=== PATIENT | female | born 1995 | race Caucasian/White ===

== ENCOUNTER 2017-01-05 22:26 | Inpatient (IN) | payer OTHER ==
[~2017-01-05] VITALS: Ht 157.5 cm; Wt 45.4 kg
--- NOTE | ~2017-01-05 | CO ---
Unit #: [id number] #: [id number] Patient: JENNIE ZUÑIGA [id number] [address] [address] [id number] I MR#: [id number] NAME: JENNIE ZUÑIGA ROOM: 228 Age: 21 Sex: F Admission Date: 01/05/2017 : 1995 Attending Physician: Tegan Rodriguez M.D. Primary Care Physician: No Primary Care Physician Consultation Date: 01/06/2017 CONSULTATION REPORT REASON FOR CONSULTATION Colitis. HISTORY OF PRESENT ILLNESS This 21-year-old female was admitted last night with complaints of lower abdominal pain and diarrhea. It has been going on for about 3 weeks. She has made 2 different ER visits. On the first visit 2 weeks ago, she was given some antibiotics, which made her feel better; however, after the antibiotics were done, she started with symptoms again. She did have blood in the stool for the first few days. After that, it has been mostly frequent stools, which is watery. She complains of lower abdominal pain, feels chills but no fever. No (1) symptoms, including nausea, vomiting, hematemesis. Denies any antibiotic use before this episode. Denies any sick contacts. PAST MEDICAL HISTORY Unremarkable. SOCIAL HISTORY Nonsmoker. No alcohol. No drug use. REVIEW OF SYSTEMS Complete 10-point review of systems was done, which is unremarkable other than as mentioned above. ALLERGIES Augmentin, metronidazole and amoxicillin. PHYSICAL EXAMINATION VITAL SIGNS: Vital signs are stable. Afebrile. GENERAL: No acute distress. HEENT: Pupils are equal and reactive. Sclera anicteric. Oral mucosa moist. NECK: No JVD. No lymphadenopathy. CHEST: Clear to auscultation bilaterally. CARDIOVASCULAR SYSTEM: Regular rate and rhythm. No murmurs. ABDOMEN: Soft, nontender, nondistended. EXTREMITIES: Without any clubbing, cyanosis, or edema. NEUROLOGIC: Intact. SKIN: Warm and dry. DIAGNOSTIC STUDIES LABS: Results are pending at this time. Unit #: [id number] #: [id number] Patient: JENNIE ZUÑIGA ASSESSMENT AND PLAN I will get the reports on CT scan and labs from [facility]. In the meantime, we will keep her on broad-spectrum antibiotics and IV fluids and symptomatic treatment. Will go ahead and get stool for C. difficile, as well as culture and sensitivity. If stool studies are negative, and after reviewing the CT findings, consider colonoscopy. Thank you, Dr. Rodriguez, for this interesting consult. Will follow along. Dictated by... Moody Nowak/kareem TD: 01/07/2017 08:21 JOB #: [id number] CONSULTATION REPORT Page 1 of 1 X Isaac Sahni MD CONSULTATION REPORT
--- NOTE | ~2017-01-05 | DS ---
Unit #: [id number] #: [id number] Patient: JENNIE ZUÑIGA [id number] [address] [place], [place] [address] [id number] I MR#: [id number] NAME: JENNIE ZUÑIGA ROOM: 228 Age: 21 Sex: F Admission Date: 01/05/2017 : 1995 Discharge Date: 01/06/2017 Attending Physician: Tegan Rodriguez M.D. Primary Care Physician: No Primary Care Physician DISCHARGE SUMMARY REASON FOR ADMISSION Diarrhea. DISCHARGE DIAGNOSES 1. Diarrhea likely infectious but rule out ulcerative colitis. 2. Chronic anemia. 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 PROCEDURES Colonoscopy. HOSPITAL COURSE This is a very pleasant 21-year-old female with a past medical history significant only for allergic rhinitis and anemia, who presented to the emergency room with a second bout of explosive watery diarrhea over the last three weeks. Patient stated that she had similar symptoms a couple of weeks ago and she was treated with Cipro and Flagyl. However, she couldn't tolerate Flagyl with nausea and vomiting, so she just finished a course of nausea and vomiting, so she just finished a course of Cipro and at the end of her course, she was feeling better; however, three days after she stopped her antibiotics, her symptoms came back again. She denied any family history of autoimmune disease, Crohn disease or ulcerative colitis. Her CT abdomen was consistent with thickened (2) concerning for possible ulcerative colitis. Patient was hydrated well and started on Levaquin per Dr. Sahni. She is undergoing colonoscopy at the time of dictation and resolved to be followed in Dr. Sahni's notes. DISCHARGE MEDICATIONS 1. Kurvelo. 2. Singulair 10 mg p.o. daily. 3. Antibiotics to be determined at the time of discharge by Dr. Sahni. Dictated by... Stephen Kirby M.D. EA/mariana Unit #: [id number] #: [id number] Patient: JENNIE ZUÑIGA TD: 01/07/2017 11:46 JOB #: [id number] DISCHARGE SUMMARY Page 1 of 1 X STEPHEN CORDERO MD DISCHARGE SUMMARY
--- NOTE | ~2017-01-05 | HP ---
Unit #: [id number] #: [id number] Patient: JENNIE ZUÑIGA [id number] [address] [address] [id number] I MR#: [id number] NAME: JENNIE ZUÑIGA ROOM: 228 Age: 21 Sex: F Admission Date: 01/05/2017 : 1995 Attending Physician: Tegan Rodriguez M.D. Primary Care Physician: No Primary Care Physician HISTORY AND PHYSICAL REASON FOR ADMISSION Diarrhea. HISTORY OF PRESENT ILLNESS This is a very pleasant, 21-year-old, female with past medical history significant for allergy who presented to the emergency room with abdominal discomfort and recurrent diarrhea. Patient stated that two weeks ago she had similar symptoms and she presented to her primary care doctor, who started her on Cipro and Flagyl; however, patient could not tolerate Flagyl due to nausea, vomiting, and intolerance. She stated that her diarrhea subsided upon finishing her Cipro course; however, two days after, she started having diarrhea again associated with some abdominal discomfort and nausea, but no vomiting. Patient denied any similar episode many years ago. Patient describes her diarrhea as watery and explosive. She stated that she had multiple episodes over the last 24 hours; however, it is better today. PAST MEDICAL HISTORY Allergic rhinitis. PAST SURGICAL HISTORY 1. Tonsillectomy. 2. Adenoid (1) . ALLERGIES No known drug allergies. SOCIAL HISTORY Patient denied any history of smoking, alcohol, or drug abuse. She works part-time and she goes to college. REVIEW OF SYSTEMS Twelve-point review of systems were obtained and were negative, except for diarrhea and some abdominal discomfort with nausea. PHYSICAL EXAMINATION GENERAL: The patient is not in acute distress. VITAL SIGNS: Blood pressure 115/59, respiratory rate 16, and O2 saturation 100% on room air. HEENT: Atraumatic and normocephalic. EOMI. NECK: Supple. No JVD. No lymphadenopathy. CHEST: Clear to auscultation bilaterally. Unit #: [id number] #: [id number] Patient: JENNIE ZUÑIGA HEART: S1 and S2. No murmurs, gallops, or rubs. ABDOMEN: Soft and nontender. Bowel sounds positive. No hepatosplenomegaly. EXTREMITIES: No edema or cyanosis. SKIN: No rashes. 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 No focal motor/sensory deficit. DIAGNOSTIC STUDIES LABORATORY: Creatinine 0.6, calcium 8.1, and bicarb 19. White blood count 12.7. IMAGING: CT abdomen and pelvis were reviewed from the outlying ER, which is consistent with colitis and colon thickening. ASSESSMENT 1. Infectious colitis. 2. Chronic anemia. 3. Allergic rhinitis. PLAN 1. Will continue patient on Levaquin, but may need to add Flagyl if she can tolerate. Maybe we need to check if IV form is available. 2. Rule out C. diff. colitis. 3. Stool for culture. 4. GI eval for possible colonoscopy. 5. Encourage out of bed to chair and ambulation. Dictated by Moody Fairbanks TD: 01/07/2017 06:12 JOB #: [id number] HISTORY AND PHYSICAL Page 1 of 1 X STEPHEN CORDERO MD X HISTORY AND PHYSICAL
--- NOTE | ~2017-01-05 | A ---
[facility] Nutrition Therapy DATE: 01/06/17 Patient: JENINE ZUÑIGA Physician: HUNTER Address: [address] [place] [address] COART Room/Bed: [address] [place] [address], Zip: [place] [address] Admit Date: 01/05/17 Date of : [birth year] Height: 5 2 Weight: 100 45.4 NUTRITIONAL ASSESSMENT: REASON: Low BMI Admitting dx: 21 y/o female admitted with abdominal pain, found to have colitis PMH: No H&P currently available Anthropometrics: Ht: 62", Wt: 45.4 kg (100 lbs), BMI: 18.3 (underweight) Labs: None available Meds: Levaquin, pain meds, zofran prn I/O & Bowel function: BM 01/05 Skin Integrity: No issues, no edema Estimated Nutrition Needs: Increased due to underweight status Assessment: Chart reviewed, events noted. See admitting dx above. Patient confirms above weight/height, stating this is her UBW and denies any recent weight loss. Denies N/V at this time or chewing/swallowing difficulties. Tolerating clear liquids, amenable to trying Ensure clear- will order. Pt appears nourished, scored 0 points on the malnutrition risk screen. See RD recs below, will follow. Dx: Underweight r/t unknown etiology AEB BMI 18.3. Intervention: Ensure clear BID Monitoring, Evaluation and Goals: 1. Tolerance of diet advancement. 2. Gradual weight gain towards a healthy BMI range. Monitor: per yadira, criteria to determine if above goals met Recommendations: 1. RD ordering apple Ensure clear BID to provide extra kcals/protein. Advance diet to regular as tolerated. Patient may benefit from a low fiber diet during flare-up. Suggest small, frequent meals while restricting high fat/greasy foods and dairy if not tolerated. [facility] Nutrition Therapy DATE: 01/06/17 Patient: JENNIE ZUÑIGA Physician: HUNTER Address: [address] [place] [address] COART Room/Bed: [address] [place] [address], Zip: [place] [address] Admit Date: 01/05/17 Date of : [birth year] Height: 5 2 Weight: 100 45.4 2. Weigh q 3 days for monitoring purposes, as the patient is clinically underweight. RD will follow Mild nutrition risk Respectfully, Nellie Olsen, MARLENY, LD [employer] [facility] cc: client file
[~2017-01-05 22:26] MED LIST: ALLERGY SHOTS; CETIRIZINE HCL10 MG; SINGULAIR PO; TRIAMCINOLONE AC1 GM
[2017-01-06] MEDS ORDERED: BIRTH CONTROL PILL PO (00:08)
[2017-01-06] MEDS ORDERED: KURVELO1 EACH PO (00:34)
[2017-01-06 10:32] LABS: HEMATOCRIT 34.8 % (35.0-45.0); HEMOGLOBIN 11.7 gm/dL (12.0-16.0); MEAN CELL VOLUME 87.3 FL (83-96); MEAN CORPUSCULAR HEMOGLOBIN 29.2 PG (28-34); MEAN CORPUSCULAR HGB CONC 33.4 g/dL (30-36); MEAN PLATELET VOLUME 8.9 FL (6.5-11.5); RED BLOOD COUNT 3.99 X10e (3.90-5.30); RED CELL DISTRIBUTION WIDTH 13.2 % (11.0-15.5); WHITE BLOOD COUNT 12.7 X10e3 (4.0-10.5)
[2017-01-06 11:04] LABS: ALBUMIN SERUM 3.3 g/dL (3.5-5.0); BILIRUBIN,TOTAL 0.9 mg/dL (0.2-2.0); BUN/CREATININE RATIO 8.33; CALCIUM SERUM 8.1 mg/dL (8.4-10.2); CREATININE SERUM 0.6 mg/dL (0.6-1.4); GLOM FILT RATE Estimated 132.1 mL/min (>60); POTASSIUM 3.5 mmol/L (3.5-5.1); PROTEIN TOTAL SERUM 6.1 g/dL (6.0-8.3)
[2017-01-07] MEDS ORDERED: FLAGYL PO (13:23)
== END 2017-01-07 14:13 | disposition home or self-care (01) | DRG 392 ==
LOC: C2A 22:26 → UNDOADMIN 22:26 → C2A 01-06 00:15
PROVIDERS: Internal Medicine
DX: A09 Infectious gastroenteritis and colitis, unspecified (principal); E46 Unspecified protein-calorie malnutrition; Z68.1 Body mass index [BMI] 19.9 or less, adult; J30.9 Allergic rhinitis, unspecified; D64.89 Other specified anemias
CPT/HCPCS: 80053; 84703; 85027; 86140; 87045; 87427; 87493; 87899; J1956; J2405

== ENCOUNTER 2017-01-21 10:00 | Inpatient (IN) | payer OTHER ==
[~2017-01-21] VITALS: Ht 157.5 cm; Wt 47.6 kg
--- NOTE | ~2017-01-21 | CR2 ---
[facility] A Service of [facility] RADIOLOGY TEXT RESULTS PATIENT: JENNIE ZUÑIGA LOCATION: [address] : [birth year] UNIT #: [id number] AGE: [address]: STEPHEN CORDERO MD SEX: F ORDER DR: [id number] [id number] [place], [place] [address] [id number] MR#: [id number] Acc #: [id number] NAME: JENNIE ZUÑIGA : 1995 SEX: F STUDY DATE/TIME: UNIT: [place] ROOM: STUDY DESCRIPTION: CR Abdomen Acute Series Attending Physician: Maya Yu M.D. Ordering Physician: Maya Yu M.D. Primary Care Physician: Generic Doctor MEDICAL IMAGING REPORT This report is preliminary unless electronic signature is present EXAM Abdomen series, 01/21/2017, 1036 hours. CLINICAL HISTORY 21-year-old with history of colitis, complaining of abdominal pain today. COMPARISON CT abdomen and pelvis, 01/05/2017, chest x-ray 06/18/2014. FINDINGS Portable upright chest demonstrates normal cardiac, mediastinal and hilar contours. The lungs are well expanded and clear. There is no effusion. No pneumothorax or free air in the abdomen. The supine and upright views of the abdomen demonstrate no evidence of bowel distension or bowel wall thickening. No free air or suspicious calcifications. IMPRESSION 1. Normal chest. 2. No evidence of small bowel or colonic distension. No wall thickening is detected on plain film. There is no free air or suspicious calcification. Dictated by... Karena Fernandes M.D. THIS IS AN ELECTRONICALLY VERIFIED REPORT Karena Fernandes M.D. at 01/22/2017 3:27 PM CELESTINE/maurisio TD: 01/21/2017 15:32 [facility] A Service of [facility] RADIOLOGY TEXT RESULTS PATIENT: JENNIE ZUÑIGA LOCATION: [address] : [birth year] UNIT #: [id number] AGE: [address]: STEPHEN CORDERO MD SEX: F ORDER DR: JOB #: [id number] MEDICAL IMAGING REPORT Page 1 of 1 COPY
--- NOTE | ~2017-01-21 | HP ---
Unit #: [id number] #: [id number] Patient: JENNIE ZUÑIGA [id number] [address] [address] [id number] I MR#: [id number] NAME: JENNIE ZUÑIGA ROOM: 216 Age: 21 Sex: F Admission Date: 01/21/2017 : 1995 Attending Physician: Lukasz Linder Primary Care Physician: Generic Doctor Not In System HISTORY AND PHYSICAL CHIEF COMPLAINT Diarrhea. HISTORY OF PRESENT ILLNESS [id number] female, with past medical history of allergies, presented with complaint of abdominal pain and has recent episode of C. difficile colitis and was seen by gastroenterology and I am seeing her at the bedside. The patient denies any headache, blurry vision, no chest pain. PAST MEDICAL HISTORY Rhinitis. SURGICAL HISTORY Tonsillectomy, adenoid surgery. ALLERGIES No known drug allergies. SOCIAL HISTORY No smoking, alcohol, or drug abuse, and she goes to college. PHYSICAL EXAMINATION VITAL SIGNS: Temperature 98, pulse 87, respiration 12, and blood pressure 130/70. NEUROLOGIC: Awake, alert, and oriented. No neurologic deficit. HEENT: PERRLA. NECK: Supple. No jugular venous distention. CHEST: Bilateral air entry. Bilateral mild rhonchi. GI: Nontender. Soft. Bowel sounds are positive. EXTREMITIES: No edema. SKIN: No rash. LYMPHATICS: No lymphadenopathy. ASSESSMENT/PLAN Acute colitis, C. difficile. Plan is to continue the patient on vancomycin and Flagyl, and GI consultation. Please see orders for detailed plans. Dictated by Unit #: [id number] #: [id number] Patient: JENNIE ZUÑIGA Moody Wallace TD: 01/23/2017 12:05 JOB #: [id number] HISTORY AND PHYSICAL Page 1 of 1 X Tegan Rodriguez MD HISTORY AND PHYSICAL
[~2017-01-21 10:00] MED LIST changes: +BIRTH CONTROL PILL PO; +FLAGYL PO; +KURVELO1 EACH PO
[2017-01-21] MEDS ORDERED: VANCOCIN HCL250 MG PO (11:01)
[2017-01-21] MEDS ORDERED: FLAGYL PO (11:01)
[2017-01-21] MEDS ORDERED: PATIENT'S PHARMACY (11:01)
[2017-01-21] MEDS ORDERED: [UNRECOGNIZED DRUG - OTHER] PO (11:02)
[2017-01-21 11:53] LABS: URINE SOURCE CLEAN CATCH
[2017-01-21 11:59] LABS: BASOPHIL% 0.3 % (0-2.5); EOSINOPHIL% 0.3 % (0.0-7.0); HEMATOCRIT 39.6 % (35.0-45.0); LYMPHOCYTE# 2.1 X10e3 (1.0-3.5); LYMPHOCYTE% 14.3 % (17.0-45.0); MEAN CELL VOLUME 87.2 FL (83-96); MEAN CORPUSCULAR HEMOGLOBIN 28.7 PG (28-34); MEAN CORPUSCULAR HGB CONC 32.9 g/dL (30-36); MEAN PLATELET VOLUME 9.7 FL (6.5-11.5); MONOCYTE# 0.7 X10e3 (0-1.0); MONOCYTE% 4.9 % (3.0-12.0); NEUTROPHIL# 11.8 X10e3 (1.5-7.1); NEUTROPHIL% 80.2 % (40-75); PLATELET COUNT 209 X10e3 (140-420); RED BLOOD COUNT 4.55 X10e (3.90-5.30); RED CELL DISTRIBUTION WIDTH 13.1 % (11.0-15.5); WHITE BLOOD COUNT 14.7 X10e3 (4.0-10.5)
[2017-01-21 12:01] LABS: URINE APPEARANCE CLOUDY; URINE BLOOD TRACE (NEG); URINE COLOR DK YELLOW; URINE GLUCOSE NEG (NEG); URINE KETONE 3+ (NEG); URINE LEUKOCYTE ESTERASE TRACE (NEG); URINE NITRATE NEG (NEG); URINE PH 5.5 (5-8); URINE PROTEIN 2+ (NEG); URINE SPECIFIC GRAVITY 1.031 (1.003-1.035)
[2017-01-21 12:04] LABS: DIFF IND NO
[2017-01-21 12:05] LABS: CULTURE INDICATED? YES; URINE SQUAMOUS EPITHELIAL CELL MANY /[HPF]
[2017-01-21 12:21] LABS: URINE BILIRUBIN NEG (NEG)
[2017-01-21 12:22] LABS: U HYALINE CASTS AUWI 0-2 /[LPF]; URINE MUCUS PRESENT
[2017-01-21 12:24] LABS: URINE BACTERIA AUWI 1+ (NEGATIVE)
[2017-01-21 12:34] LABS: ALBUMIN SERUM 3.9 g/dL (3.5-5.0); BILIRUBIN, DIRECT 0.1 mg/dL (0.0-0.2); BILIRUBIN,INDIRECT 0.7 mg/dL (0.0-0.9); BILIRUBIN,TOTAL 0.8 mg/dL (0.2-2.0); BUN/CREATININE RATIO 11.42; CALCIUM SERUM 9.3 mg/dL (8.4-10.2); CREATININE SERUM 0.7 mg/dL (0.6-1.4); GLOM FILT RATE Estimated 125.6 mL/min (>60); POTASSIUM 3.7 mmol/L (3.5-5.1)
[2017-01-22 05:37] LABS: HEMATOCRIT 32.7 % (35.0-45.0); MEAN CELL VOLUME 87.1 FL (83-96); MEAN CORPUSCULAR HEMOGLOBIN 29.3 PG (28-34); MEAN CORPUSCULAR HGB CONC 33.6 g/dL (30-36); MEAN PLATELET VOLUME 9.4 FL (6.5-11.5); RED BLOOD COUNT 3.75 X10e (3.90-5.30); RED CELL DISTRIBUTION WIDTH 13.2 % (11.0-15.5); WHITE BLOOD COUNT 8.1 X10e3 (4.0-10.5)
[2017-01-22 06:20] LABS: ALBUMIN SERUM 2.9 g/dL (3.5-5.0); ALKALINE PHOSPHATASE 32 U/L (32-92); ALT (SGPT) 16 U/L (8-29); AST (SGOT) 18 U/L (14-37); BILIRUBIN,TOTAL 0.4 mg/dL (0.2-2.0); BLOOD UREA NITROGEN <5 mg/dL (9-23); CALCIUM SERUM 8.1 mg/dL (8.4-10.2); CARBON DIOXIDE 20 mmol/L (22-31); CHLORIDE 110 mmol/L (100-111); CREATININE SERUM 0.5 mg/dL (0.6-1.4); GLOM FILT RATE Estimated 140.3 mL/min (>60); GLUCOSE FASTING 97 mg/dL (70-110); POTASSIUM 3.7 mmol/L (3.5-5.1); PROTEIN TOTAL SERUM 5.6 g/dL (6.0-8.3); SODIUM 136 mmol/L (135-145)
[2017-01-23 06:15] LABS: HEMATOCRIT 37.8 % (35.0-45.0); HEMOGLOBIN 12.2 gm/dL (12.0-16.0); MEAN CELL VOLUME 88.3 FL (83-96); MEAN CORPUSCULAR HEMOGLOBIN 28.5 PG (28-34); MEAN CORPUSCULAR HGB CONC 32.2 g/dL (30-36); MEAN PLATELET VOLUME 9.4 FL (6.5-11.5); RED BLOOD COUNT 4.29 X10e (3.90-5.30); RED CELL DISTRIBUTION WIDTH 13.3 % (11.0-15.5); WHITE BLOOD COUNT 7.8 X10e3 (4.0-10.5)
[2017-01-23 06:40] LABS: ALBUMIN SERUM 3.4 g/dL (3.5-5.0); ALKALINE PHOSPHATASE 39 U/L (32-92); ALT (SGPT) 16 U/L (8-29); AST (SGOT) 22 U/L (14-37); BILIRUBIN,TOTAL 0.3 mg/dL (0.2-2.0); BLOOD UREA NITROGEN <5 mg/dL (9-23); CALCIUM SERUM 8.6 mg/dL (8.4-10.2); CARBON DIOXIDE 21 mmol/L (22-31); CHLORIDE 109 mmol/L (100-111); CREATININE SERUM 0.5 mg/dL (0.6-1.4); GLOM FILT RATE Estimated 140.3 mL/min (>60); GLUCOSE FASTING 86 mg/dL (70-110); POTASSIUM 3.5 mmol/L (3.5-5.1); PROTEIN TOTAL SERUM 6.3 g/dL (6.0-8.3); SODIUM 138 mmol/L (135-145)
== END 2017-01-23 12:18 | disposition home or self-care (01) | DRG 373 ==
LOC: CED 10:00 → C2A 13:40 → CED 16:18 → C2A 16:18
PROVIDERS: Emergency Medicine; Internal Medicine
DX: A04.7 Enterocolitis due to Clostridium difficile (principal); J30.2 Other seasonal allergic rhinitis
CPT/HCPCS: 36415; 74022; 74177; 80048; 80053; 80076; 81003; 83605; 84703; 85025; 85027; 87045; 87086; 87427; 87493; 87899; 96361; 96374; 96375; 99285; J2270; J2405; Q9967